=== PATIENT | male | born 1965 ===

== ENCOUNTER 2018-03-02 19:02 | Emergency (ER) | payer SELFPAY ==
[2018-03-02 19:21] VITALS: BP 129/72; PULSE 88; RESP 20; TEMP 98.8; O2SAT 99
[2018-03-02] MEDS ORDERED: Lidocaine 5% Patch TD STA (19:57)
--- NOTE | 2018-03-02 20:01 | C.PDOC ---
History Of Present Illness 52 year old male with no new medical history presents to the ED complaining of lower back pain ongoing for 3 months after he slipped down the stairs at work and hit his back with the edge of the step. pt sought no medicak care until the end of December; he went to the ED in [facility], where he had an xray and he was given medications for the pain with mild relief. He brought the XRay report and films taken in DR, which show loss of lordosis and DJD with no fracture. He denies any further trauma. Patient has not taken any other medications since he ran out. He reports pain is worse with changing positions. He denies any fever, abdomen pain, bladder or bowel symptoms, or saddle anesthesia. Time Seen by Provider: 03/02/18 19:30 Chief Complaint (Nursing): Back Pain History Per: Patient History/Exam Limitations: no limitations Onset/Duration Of Symptoms: Days Current Symptoms Are (Timing): Still Present Quality Of Discomfort: "Pain" Exacerbating Factor(s): Turning Past Medical History Reviewed: Historical Data, Nursing Documentation, Vital Signs Vital Signs: Last Vital Signs Temp 98.8 F 03/02/18 19:16 Pulse 88 03/02/18 19:16 Resp 20 03/02/18 19:16 BP 129/72 03/02/18 19:16 Pulse Ox 99 03/02/18 19:16 - Medical History PMH: No Chronic Diseases Surgical History: No Surg Hx Family History: States: No Known Family Hx - Social History Hx Alcohol Use: No Hx Substance Use: No - Immunization History Hx Tetanus Toxoid Vaccination: Yes Hx Influenza Vaccination: No Hx Pneumococcal Vaccination: No Review Of Systems Constitutional: Negative for: Fever Gastrointestinal: Negative for: Nausea, Vomiting, Abdominal Pain, Diarrhea Genitourinary: Negative for: Dysuria, Hematuria Musculoskeletal: Positive for: Back Pain Neurological: Negative for: Other (saddle anesthesia ) Physical Exam - Physical Exam Appears: Non-toxic, Other (uncomfortable ) Skin: Warm, Dry Head: Normacephalic Eye(s): bilateral: Normal Inspection Neck: Normal ROM Chest: Symmetrical Cardiovascular: Rhythm Regular Respiratory: Normal Breath Sounds, No Rales, No Rhonchi, No Wheezing Gastrointestinal/Abdominal: Soft, No Tenderness Back: Vertebral Tenderness, Other (Bilateral paralumbar spasms palpated ) Extremity: Normal ROM, Other (5/5 strength in all extremities ) Extremity: Bilateral: Atraumatic Pulses: Left Dorsalis Pedis: Normal, Right Dorsalis Pedis: Normal Neurological/Psych: Oriented x3, Normal Speech, Normal Motor, Normal Sensation, Normal Reflexes Gait: Steady ED Course And Treatment O2 Sat by Pulse Oximetry: 99 (RA) Pulse Ox Interpretation: Normal Medical Decision Making Medical Decision Making: Orders: - Flexeril 10mg PO - Motrin 600mg PO - Lidoderm TD Disposition Counseled Patient/Family Regarding: Diagnosis, Need For Followup, Rx Given - Disposition Referrals: [facility] Education Assistant [facility] [Outside] [facility] [Outside] Aris Cespedes MD [Staff Provider] - Disposition: HOME/ ROUTINE Disposition Time: 20:10 Condition: GOOD Additional Instructions: Por favor, chris un seguimiento en la clnica mdica francois pronto bibi sea posible para vida mayor evaluacin del dolor de espalda; recomendar la referencia a terapia fsica. Tambin necesita un chequeo general. [place] ibuprofeno y ciclobenzaprina (relajante muscular) segn lo prescrito. El relajante muscular lo sofia sentir somnoliento, por lo que no debe manejar maquinaria ni conducir cuando tome adrianna medicamento. Compresas calientes para bajar el isatu de la espalda varias veces al da. Tambin puede ir al control del dolor; llamar para vida howard Please follow up in medical clinic as soon as possible for further evaluation of back pain; recommend referral to physical therapy. Also you need a general check up. Take ibuprofen and cyclobenzaprine (muscle relaxant) as prescribed. The muscle relaxant will make you sleepy, so no operating machinery or driving when taking this medication. Warm compresses to lower back area several times a day. You can also go to pain management; call for an apppointment. 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 - Scribe Statement The provider has reviewed the documentation as recorded by the Yueibiraida Cortez All medical record entries made by the Ari were at my direction and personally dictated by me. I have reviewed the chart and agree that the record accurately reflects my personal performance of the history, physical exam, medical decision making, and the department course for this patient. I have also personally directed, reviewed, and agree with the discharge instructions and disposition.
[2018-03-02] MEDS ORDERED: Lidocaine 5% Patch TD ONE (20:02)
== END 2018-03-02 20:11 | disposition home or self-care (01) ==
LOC: C.ER 19:02
DX: M54.5 Low back pain (principal); M62.830 Muscle spasm of back